=== PATIENT | female | born 1945 ===

== ENCOUNTER 2018-11-28 09:53 | Inpatient (IN) | payer MEDICARE, OTHER ==
[2018-11-28] MEDS ORDERED: CARDIZEM ONE (10:03)
[2018-11-28] MEDS ORDERED: NACL 0.9% 1000 ML 1,000 ML ONE (10:10)
[2018-11-28] MEDS ORDERED: CARDIZEM IV ONE ×2 (10:17→11:25)
[2018-11-28] MEDS ORDERED: NACL 0.9% 1000 ML 1,000 ML IV ONE (10:23)
[2018-11-28 10:46] LABS: Basophils # (Auto) 0.1 K/mm3 (0.0-0.1); Basophils % (Auto) 1.2 % (0.0-1.8); Eosinophils % (Auto) 0.8 % (0.0-4.3); Hematocrit 36.6 % (30.3-42.9); Hemoglobin 11.8 gm/dl (10.1-14.3); Lymphocytes # (Auto) 0.9 K/mm3 (1.2-5.4); Lymphocytes % (Auto) 20.5 % (13.4-35.0); Mean Corpuscular HGB Conc 32 % (30-34); Mean Corpuscular Volume 74 fl (79-97); Monocytes # (Auto) 0.2 K/mm3 (0.0-0.8); Monocytes % (Auto) 4.4 % (0.0-7.3); Platelet Count 286 K/mm3 (140-440); Red Blood Count 4.95 M/mm3 (3.65-5.03); Red Cell Distribution Width 14.6 % (13.2-15.2)
--- NOTE | 2018-11-28 10:48 | XRay Report ---
AP CHEST: HISTORY: chest pain AP view of the chest demonstrates a normal mediastinal and cardiac contour with clear lungs and normal bony and soft tissue structures. IMPRESSION: Unremarkable AP chest.
--- NOTE | 2018-11-28 10:59 | Emergency Department Report ---
HPI - General Chief Complaint: Arrhythmia/Palpitations Time Seen by Provider: 11/28/18 09:57 - HPI HPI: 73-year-old female presents to the emergency department via EMS from home with complaint of some chest pressure and palpitations that started about 4 hours prior to arrival. The patient has a history of asthma, anxiety and depression. She is a former smoker. She denies any illicit drug use. No recent travel or sick contacts at home. She did not receive anything for her symptoms or take anything prior to arrival. However, EMS did an EKG that showed a tachyarrhythmia that was irregular. ED Past Medical Hx - Past Medical History Previous Medical History?: Yes Hx Hypertension: Yes Hx Psychiatric Treatment: Yes (depression, anxiety,) Hx Asthma: Yes - Surgical History Past Surgical History?: No - Social History Smoking Status: Former Smoker Substance Use Type: None - Medications Home Medications: Home Medications Medication Instructions Recorded Confirmed Last Taken Type Amlodipine Bes/Olmesartan Med 1 each PO DAILY 11/28/18 11/28/18 Unknown History [Amlodipine-Olmesartan 5-40 mg] Budesonide/Formoterol Fumarate 10.2 gm IH PRN 11/28/18 11/28/18 Unknown History [Symbicort 80-4.5 Mcg Inhaler] Duloxetine HCl [Cymbalta] 120 mg PO QAM 11/28/18 11/28/18 Unknown History LORazepam [Ativan] 0.5 mg PO BID 11/28/18 11/28/18 Unknown History Zolpidem [Ambien] 5 mg PO QHS PRN 11/28/18 11/28/18 Unknown History ED Review of Systems ROS: Stated complaint: CHEST PAIN Other details as noted in HPI Comment: All other systems reviewed and negative Constitutional: denies: chills, fever Eyes: denies: eye pain, vision change ENT: denies: ear pain, throat pain Respiratory: shortness of breath. denies: cough Cardiovascular: chest pain, palpitations Gastrointestinal: denies: abdominal pain, vomiting Genitourinary: denies: dysuria, discharge Musculoskeletal: denies: back pain, arthralgia Skin: denies: rash, lesions Neurological: denies: headache, weakness Physical Exam - Physical Exam Vital Signs: Vital Signs 11/28/18 11/28/18 11/28/18 09:59 10:00 10:05 Temperature Pulse Rate 165 H 179 H 167 H Respiratory 27 H 36 H Rate Blood Pressure 97/52 Blood Pressure 95/75 [Left] O2 Sat by Pulse 100 100 Oximetry 11/28/18 11/28/18 11/28/18 10:08 10:16 10:21 Temperature 98.8 F Pulse Rate 140 H 121 H Respiratory 16 16 Rate Blood Pressure 84/57 Blood Pressure 97/52 [Left] O2 Sat by Pulse 100 99 Oximetry 11/28/18 10:30 Temperature Pulse Rate 127 H Respiratory 30 H Rate Blood Pressure 84/57 Blood Pressure [Left] O2 Sat by Pulse 98 Oximetry Physical Exam: GENERAL: The patient is well-developed well-nourished. HENT: Normocephalic. Atraumatic. Patient has moist mucous membranes. EYES: Extraocular motions are intact. Pupils equal reactive to light bilaterally. NECK: Supple. Trachea is midline. CHEST/LUNGS: Clear to auscultation. There is no respiratory distress noted. HEART/CARDIOVASCULAR: Irregular. Moderate to severe tachycardia. ABDOMEN: Abdomen is soft, nontender. Patient has normal bowel sounds. There is no abdominal distention. SKIN: Skin is warm and dry. NEURO: The patient is awake, alert, and oriented. The patient is cooperative. The patient has no focal neurologic deficits. The patient has normal speech. MUSCULOSKELETAL: There is no tenderness or deformity. There is no evidence of acute injury. ED Course Vital Signs 11/28/18 11/28/18 11/28/18 09:59 10:00 10:05 Temperature Pulse Rate 165 H 179 H 167 H Respiratory 27 H 36 H Rate Blood Pressure 97/52 Blood Pressure 95/75 [Left] O2 Sat by Pulse 100 100 Oximetry 11/28/18 11/28/18 11/28/18 10:08 10:16 10:21 Temperature 98.8 F Pulse Rate 140 H 121 H Respiratory 16 16 Rate Blood Pressure 84/57 Blood Pressure 97/52 [Left] O2 Sat by Pulse 100 99 Oximetry 11/28/18 10:30 Temperature Pulse Rate 127 H Respiratory 30 H Rate Blood Pressure 84/57 Blood Pressure [Left] O2 Sat by Pulse 98 Oximetry ED Medical Decision Making - Lab Data Result diagrams: 11/28/18 10:24 11/28/18 10:24 - EKG Data -: EKG Interpreted by Me Rate: tachycardia (165 bpm) - EKG Data Interpretation: other (atrial fibrillation with RVR, normal axis, normal intervals, very mild ST depression to the lateral leads, rate of 165 bpm) - Radiology Data Radiology results: report reviewed, image reviewed interpreted by me: Chest x-ray does not show any acute process. There are no pleural effusions, ob vious pneumonia and there is no pneumothorax. CTA CHEST: HISTORY: chest pain. COMPARISON: AP chest performed same day. TECHNIQUE: Helical CT in 1.25mm intervals following IV contrast. Pulmonary embolus protocol. Sagittal and coronal reformatted images. Rotational MIP images. FINDINGS: Contrast bolus is satisfactory. No pulmonary embolus is identified. Thyroid gland: Normal. Tracheobronchial tree: Normal. Esophagus: Normal. Heart: Normal. Pericardium: Normal. Mediastinum: Normal. Lung Grover: Normal. Pleural Spaces: Normal. Musculoskeletal: Osteopenia. Minimal thoracic spondylosis. Limited images of the upper abdomen demonstrates a few tiny gallstones in the gallbladder. No biliary dilatation. The right kidney is not identified in the upper abdomen suggesting right nephrectomy, ectopia or agenesis, correlate with the patient's history. IMPRESSION: No evidence for pulmonary embolus. Unremarkable CT chest with contrast. Cholelithiasis. Right nephrectomy? See above. Transcribed By: TTR Dictated By: ALFA DOOLEY JR, MD Electronically Authenticated By: ALFA DOOLEY JR, MD Signed Date/Time: 11/28/18 1431 - Medical Decision Making Patient presents to the emergency department with complaint of some chest discomfort, palpitations and shortness of breath. She was found to be in new onset atrial fibrillation with RVR. The patient had some response to the Cardizem given as a bolus so she was then started on a Cardizem drip. She did not had a conversion back to sinus rhythm but she has better rate control. Labs have been mostly unremarkable except for a slightly elevated and equivocal d- dimer. For this reason a CT angiography of the chest was done that does not show any signs of pulmonary embolism, aneurysm or dissection may show some cholelithiasis without cholecystitis. The patient will be admitted to the hospital for further evaluation of this new onset A. fib with RVR and was accepted for admission by the hospitalist, Dr. Ruiz. - Differential Diagnosis A-fib, ME, PE, Pneumonia Critical Care Time: Yes Critical care time in (mins) excluding proc time.: 35 Critical care attestation.: If time is entered above; I have spent that time in minutes in the direct care of this critically ill patient, excluding procedure time. Critical care time spent on this patient and during her initial evaluation, multiple re- evaluations, ordering and evaluation of labs and imaging, ordering and monitoring of Cardizem drip, multiple discussions with the patient. Critical Care Time: 35 minutes ED Disposition Clinical Impression: Atrial fibrillation with rapid ventricular response, New onset atrial fibrillation, Acute chest pain Disposition: 09 OP ADMIT IP TO THIS HOSP Is pt being admited?: Yes Condition: Serious Time of Disposition: 15:16
[2018-11-28 11:12] LABS: Alanine Aminotransferase 13 units/L (7-56); Albumin 3.7 g/dL (3.9-5); BUN/Creatinine Ratio 13; Blood Urea Nitrogen 10 mg/dL (7-17); Calcium 8.9 mg/dL (8.4-10.2); Hemolysis Index 6
[2018-11-28 11:36] LABS: INR 1.04 (0.87-1.13)
[2018-11-28 11:37] LABS: Partial Thromboplastin Time 34.3 Sec. (24.2-36.6)
--- NOTE | 2018-11-28 12:36 | History and Physical Report ---
History of Present Illness Chief complaint: My heart was pounding History of present illness: 73 YO Female with Asthma, Depression, Anxiety, HTN presents to ED for evaluation. Pt states that she was awakened from sleep this morning with chest pressure and chest palpitations. Pt states that she felt her heart pounding in her chest. EMS notified and upon arrival the patient was found to be in distress. Pt transported to [facility]. Pt seen and evaluated in ED and found to have Atrial Fib with RVR with heart rate in the 150's. Pt initiated on Cardizem drip for rate control and admitted to ICU. Pt denies fever, chills, shortness of breath, unilateral leg swelling, calf pain, prolonged travel/immobility, individual/family history of DVT/PE/Blood Clotting Disorders. Pt found to have CHADS 2 vasc score of 3. Pt initiated on therapeutic anticoagulation with Eliquis. Cardiology team consulted in ED. No prior admission for review. All listed medication reconciled at time of admission. Past History Past Medical History: hypertension, other (Asthma, Anxiety, Depression') Past Surgical History: No surgical history, Other (reviewed) Social history: single. denies: smoking, alcohol abuse, prescription drug abuse Family history: hypertension Medications and Allergies Allergies Allergy/AdvReac Type Severity Reaction Status Date / Time No Known Allergies Allergy Verified 11/28/18 11:11 Home Medications Medication Instructions Recorded Confirmed Last Taken Type Amlodipine Bes/Olmesartan Med 1 each PO DAILY 11/28/18 11/28/18 Unknown History [Amlodipine-Olmesartan 5-40 mg] Budesonide/Formoterol Fumarate 10.2 gm IH PRN 11/28/18 11/28/18 Unknown History [Symbicort 80-4.5 Mcg Inhaler] Duloxetine HCl [Cymbalta] 120 mg PO QAM 11/28/18 11/28/18 Unknown History LORazepam [Ativan] 0.5 mg PO BID 11/28/18 11/28/18 Unknown History Zolpidem [Ambien] 5 mg PO QHS PRN 11/28/18 11/28/18 Unknown History Active Meds: Active Medications Diltiazem HCl (Cardizem/D5w 100mg/100ml) 100 mg in 100 mls @ 5 mls/hr IV TITR SUYAPA; Protocol Review of Systems Constitutional: no weight loss, no weight gain, no fever, no chills Ears, nose, mouth and throat: no ear pain, no ear discharge, no tinnitis, no decreased hearing, no nose pain, no nasal congestion Breasts: no change in shape, no swelling, no mass Cardiovascular: palpitations, no chest pain, no orthopnea, no lightheadedness, no shortness of breath, no paroxysmal nocturnal dyspnea, no leg edema Respiratory: no cough, no cough with sputum, no excessive sputum, no hemoptysis Gastrointestinal: no nausea, no vomiting, no diarrhea, no constipation, no change in bowel habits Genitourinary Female: no pelvic pain, no flank pain, no menorrhagia, no dysuria, no urinary frequency, no urgency Rectal: no pain, no incontinence, no bleeding Musculoskeletal: no neck stiffness, no neck pain, no shooting arm pain, no arm numbness/tingling, no low back pain, no shooting leg pain Integumentary: no rash, no pruritis, no redness, no sores, no wounds Neurological: no transient paralysis, no paralysis, no weakness, no parathesias, no numbness, no tingling, no seizures Psychiatric: no anxiety, no memory loss, no change in sleep habits, no sleep disturbances, no insomnia, no hypersomnia, no change in appetite, no change in libido Endocrine: no cold intolerance, no heat intolerance, no polyphagia, no excessive thirst, no polydipsia, no polyuria, no nocturia Hematologic/Lymphatic: no easy bruising, no easy bleeding, no lymphadenopathy, no lymphedema Allergic/Immunologic: no urticaria, no allergic rhinitis, no persistent infections, no anaphylaxis Exam - Constitutional Vitals: Temp Pulse Resp BP Pulse Ox 98.8 F 126 H 29 H 110/86 99 11/28/18 10:21 11/28/18 11:46 11/28/18 11:46 11/28/18 11:46 11/28/18 11:46 General appearance: Present: mild distress - EENT Eyes: Present: PERRL ENT: hearing intact, clear oral mucosa - Neck Neck: Present: supple, normal ROM - Respiratory Respiratory effort: normal Respiratory: bilateral: CTA - Cardiovascular Rhythm: irregularly irregular Heart Sounds: Present: S1 & S2. Absent: rub, click - Extremities Extremities: pulses symmetrical, No edema Peripheral Pulses: within normal limits - Abdominal General gastrointestinal: Present: soft, non-tender, non-distended, normal bowel sounds Female genitourinary: Present: normal - Integumentary Integumentary: Present: clear, warm, dry - Musculoskeletal Musculoskeletal: gait normal, strength equal bilaterally - Psychiatric Psychiatric: appropriate mood/affect, intact judgment & insight - Neurologic Neurologic: CNII-XII intact, moves all extremities Results - Labs CBC & Chem 7: 11/28/18 10:24 11/28/18 10:24 Labs: Abnormal lab results 11/28/18 11/28/18 11/28/18 Range/Units 10:24 10:24 10:24 MCV 74 L (79-97) fl MCH 24 L (28-32) pg Lymph # 0.9 L (1.2-5.4) K/mm3 Seg Neutrophils % 73.1 H (40.0-70.0) % D-Dimer 294.87 H (0-234) ng/mlDDU Chloride 108.3 H (98-107) mmol/L Carbon Dioxide 20 L (22-30) mmol/L Glucose 119 H (65-100) mg/dL Albumin 3.7 L (3.9-5) g/dL Assessment and Plan - Patient Problems (1) Atrial fibrillation with rapid ventricular response Current Visit: Yes Status: Acute Plan to address problem: Admit to ICU: pt initiated on Cardizem drip, therapeutic anticoagulation, thyroid panel, magnesium level, (2) HTN (hypertension) Current Visit: Yes Status: Acute Qualifiers: Hypertension type: essential hypertension Qualified Code(s): I10 - Essential (primary) hypertension Plan to address problem: Monitor bp q shift, supportive care. (3) Anxiety Current Visit: Yes Status: Acute Plan to address problem: Ativan prn, supportive care. (4) Depression Current Visit: Yes Status: Acute Qualifiers: Depression Type: other depression Qualified Code(s): F32.89 - Other specified depressive episodes Plan to address problem: Continue cymbalta, Pt declines phych evaluation at this time. Pt denies current depression. (5) DVT prophylaxis Current Visit: Yes Status: Acute Plan to address problem: SCD to BLE while in bed, therapeutic anticoagulation.
[2018-11-28] MEDS ORDERED: CARDIZEM/D5W 100MG/100ML 100 MG/100 ML BAG IV SCH (13:00)
[2018-11-28] MEDS ORDERED: SODIUM CHLORIDE FLUSH SYRINGE 10 ML IV PRN (13:11)
[2018-11-28] MEDS ORDERED: AMBIEN PO PRN (13:12)
[2018-11-28] MEDS ORDERED: NON-FORMULARY (Budesonide/Formoterol Fumarate [Symbicort 80-4.5 Mcg Inhaler] 10.2 GM) IH SCH (13:15)
[2018-11-28] MEDS ORDERED: NACL 0.9% 1000 ML IV ONE (13:24)
--- NOTE | 2018-11-28 14:34 | Consultation ---
History of Present Illness Consult date: 11/28/18 Consult reason: atrial fibrillation History of present illness: This is a 73-year old woman who presents to the emergency department with palpitations, admitted with rapid atrial fibrillation. Cardiac consultation has been requested. Currently on intravenous Diltiazem. Initiated on eliquis for oral anticoagulation therapy. TSH is normal. Patient gives a history of hypertension, asthma, depression, anxiety and remote right nephrectomy. Patient denies a history of arrhythmias and has not followed with a load tester. Past History Past Medical History: hypertension, other (Asthma, Anxiety, Depression') Past Surgical History: Other (right nephrectomy) Social history: single. denies: smoking, alcohol abuse, prescription drug abuse Family history: hypertension Medications and Allergies Allergies Allergy/AdvReac Type Severity Reaction Status Date / Time No Known Allergies Allergy Verified 11/28/18 11:11 Home Medications Medication Instructions Recorded Confirmed Last Taken Type Amlodipine Bes/Olmesartan Med 1 each PO DAILY 11/28/18 11/28/18 Unknown History [Amlodipine-Olmesartan 5-40 mg] Budesonide/Formoterol Fumarate 10.2 gm IH PRN 11/28/18 11/28/18 Unknown History [Symbicort 80-4.5 Mcg Inhaler] Duloxetine HCl [Cymbalta] 120 mg PO QAM 11/28/18 11/28/18 Unknown History LORazepam [Ativan] 0.5 mg PO BID 11/28/18 11/28/18 Unknown History Zolpidem [Ambien] 5 mg PO QHS PRN 11/28/18 11/28/18 Unknown History Active Meds: Active Medications Amlodipine Besylate (Norvasc) 5 mg PO QDAY SUYAPA Apixaban (Eliquis) 5 mg PO Q12HR SUYAPA; Protocol Arformoterol Tartrate (Brovana Nebu) 15 mcg IH Q12HRT SUYAPA Budesonide (Pulmicort) 0.5 mg IH Q12HRT SUYAPA Duloxetine HCl (Cymbalta) 120 mg PO QDAY SUYAPA Diltiazem HCl (Cardizem/D5w 100mg/100ml) 100 mg in 100 mls @ 5 mls/hr IV TITR SUYAPA; Protocol Last Titration: 11/28/18 14:18 Dose: 10 mg/hr, 10 mls/hr Documented by: Lorazepam (Ativan) 0.5 mg PO BID SUYAPA Losartan Potassium (Cozaar) 100 mg PO QDAY SUYAPA Sodium Chloride (Sodium Chloride Flush Syringe 10 Ml) 10 ml IV BID SUYAPA Sodium Chloride (Sodium Chloride Flush Syringe 10 Ml) 10 ml IV PRN PRN PRN Reason: LINE FLUSH Zolpidem Tartrate (Ambien) 5 mg PO QHS PRN PRN Reason: Sleep Physical Examination Vital Signs Pulse Resp Pulse Ox 165 H 27 H 100 11/28/18 09:59 11/28/18 09:59 11/28/18 09:59 General appearance: no acute distress HEENT: Positive: PERRL Neck: Positive: trachea midline Cardiac: Positive: irregularly irregular Lungs: Positive: Decreased Breath Sounds Neuro: Positive: Grossly Intact Extremities: Absent: edema Results 11/28/18 10:24 11/28/18 10:24 Cardiac Enzymes 11/28/18 Range/Units 10:24 AST 18 (5-40) units/L Coagulation 11/28/18 Range/Units 10:24 PT 13.3 (12.2-14.9) Sec. INR 1.04 (0.87-1.13) APTT 34.3 (24.2-36.6) Sec. CBC 11/28/18 Range/Units 10:24 WBC 4.6 (4.5-11.0) K/mm3 RBC 4.95 (3.65-5.03) M/mm3 Hgb 11.8 (10.1-14.3) gm/dl Hct 36.6 (30.3-42.9) % Plt Count 286 (140-440) K/mm3 Lymph # 0.9 L (1.2-5.4) K/mm3 [place] # 0.2 (0.0-0.8) K/mm3 Eos # 0.0 (0.0-0.4) K/mm3 Baso # 0.1 (0.0-0.1) K/mm3 Comprehensive Metabolic Panel 11/28/18 Range/Units 10:24 Sodium 143 (137-145) mmol/L Potassium 4.0 (3.6-5.0) mmol/L Chloride 108.3 H (98-107) mmol/L Carbon Dioxide 20 L (22-30) mmol/L BUN 10 (7-17) mg/dL Creatinine 0.8 (0.7-1.2) mg/dL Glucose 119 H (65-100) mg/dL Calcium 8.9 (8.4-10.2) mg/dL AST 18 (5-40) units/L ALT 13 (7-56) units/L Alkaline Phosphatase 79 (35-129) units/L Total Protein 6.7 (6.3-8.2) g/dL Albumin 3.7 L (3.9-5) g/dL Assessment and Plan Atrial fibrillation, new onset on IV diltiazem initiated on eliquis for oral anticoagulation therapy normal TSH Hypertension Hx of right nephrectomy
--- NOTE | 2018-11-28 14:36 | Cat Scan Report ---
CTA CHEST: HISTORY: chest pain. COMPARISON: AP chest performed same day. TECHNIQUE: Helical CT in 1.25mm intervals following IV contrast. Pulmonary embolus protocol. Sagittal and coronal reformatted images. Rotational MIP images. FINDINGS: Contrast bolus is satisfactory. No pulmonary embolus is identified. Thyroid gland: Normal. Tracheobronchial tree: Normal. Esophagus: Normal. Heart: Normal. Pericardium: Normal. Mediastinum: Normal. Lung Grover: Normal. Pleural Spaces: Normal. Musculoskeletal: Osteopenia. Minimal thoracic spondylosis. Limited images of the upper abdomen demonstrates a few tiny gallstones in the gallbladder. No biliary dilatation. The right kidney is not identified in the upper abdomen suggesting right nephrectomy, ectopia or agenesis, correlate with the patient's history. IMPRESSION: No evidence for pulmonary embolus. Unremarkable CT chest with contrast. Cholelithiasis. Right nephrectomy? See above.
[2018-11-28] MEDS: ELIQUIS PO SCH ×2 (15:31→22:10)
[2018-11-28 15:43] LABS: Free T4 (Free Thyroxine) 0.87 ng/dL (0.76-1.46)
[2018-11-28 16:03] LABS: Chol/HDL Ratio 2.27 %
[2018-11-28] MEDS: PULMICORT IH SCH (21:57)
[2018-11-28] MEDS: BROVANA NEBU IH SCH (21:57)
[2018-11-28] MEDS: SODIUM CHLORIDE FLUSH SYRINGE 10 ML IV SCH (22:00)
[2018-11-28] MEDS ORDERED: ELIQUIS PO SCH (22:00)
[2018-11-28] MEDS: ATIVAN PO SCH (22:11)
[2018-11-29] MEDS: PULMICORT IH SCH ×2 (07:45→19:00)
[2018-11-29] MEDS: BROVANA NEBU IH SCH ×2 (07:45→19:00)
[2018-11-29] MEDS: COZAAR PO SCH (09:46)
[2018-11-29] MEDS: CYMBALTA PO SCH (09:47)
[2018-11-29] MEDS: ELIQUIS PO SCH ×2 (09:47→21:20)
[2018-11-29] MEDS: ATIVAN PO SCH ×2 (09:48→21:20)
[2018-11-29] MEDS: SODIUM CHLORIDE FLUSH SYRINGE 10 ML IV SCH ×2 (09:48→21:20)
[2018-11-29] MEDS ORDERED: NON-FORMULARY (Duloxetine Hcl [Cymbalta] 120 MG) PO SCH (10:00)
[2018-11-29] MEDS ORDERED: OLMESARTAN MED PO SCH (10:00)
[2018-11-29] MEDS ORDERED: NORVASC PO SCH (10:00)
[2018-11-29] MEDS ORDERED: AMLODIPINE BES PO SCH (10:00)
--- NOTE | 2018-11-29 10:50 | Consultation ---
History of Present Illness - Reason for Consult Consult date: 11/29/18 Afib with RVR Requesting physician: URIEL RUSSELL - History of Present Illness 73 y/o female who work up yesterday morning with chest pressure. Came to the ED with chest pain and found to be in afib with RVR. Started on Cardizem drip, converted and then became bradycardic. Drip stopped and then placed on PO meds for rate control. Started on oral anticoagulation. Past History Past Medical History: hypertension, other (Asthma, Anxiety, Depression') Past Surgical History: Other (right nephrectomy) Social history: single. denies: smoking, alcohol abuse, prescription drug abuse Family history: hypertension Medications and Allergies Allergies Allergy/AdvReac Type Severity Reaction Status Date / Time No Known Allergies Allergy Verified 11/28/18 11:11 Home Medications Medication Instructions Recorded Confirmed Last Taken Type Amlodipine Bes/Olmesartan Med 1 each PO DAILY 11/28/18 11/28/18 Unknown History [Amlodipine-Olmesartan 5-40 mg] Budesonide/Formoterol Fumarate 10.2 gm IH PRN 11/28/18 11/28/18 Unknown History [Symbicort 80-4.5 Mcg Inhaler] Duloxetine HCl [Cymbalta] 120 mg PO QAM 11/28/18 11/28/18 Unknown History LORazepam [Ativan] 0.5 mg PO BID 11/28/18 11/28/18 Unknown History Zolpidem [Ambien] 5 mg PO QHS PRN 11/28/18 11/28/18 Unknown History Active Meds: Active Medications Amlodipine Besylate (Norvasc) 5 mg PO QDAY COUNT INCLUDES THE [facility] Last Admin: 11/29/18 09:48 Dose: 5 mg Documented by: Apixaban (Eliquis) 5 mg PO Q12HR SUYAPA; Protocol Last Admin: 11/29/18 09:47 Dose: 5 mg Documented by: Arformoterol Tartrate (Brovana Nebu) 15 mcg IH Q12HRT COUNT INCLUDES THE [facility] Last Admin: 11/29/18 07:45 Dose: 15 mcg Documented by: Budesonide (Pulmicort) 0.5 mg IH Q12HRT COUNT INCLUDES THE [facility] Last Admin: 11/29/18 07:45 Dose: 0.5 mg Documented by: Diltiazem HCl (Cardizem) 30 mg PO Q6HR COUNT INCLUDES THE [facility] Duloxetine HCl (Cymbalta) 120 mg PO QDAY COUNT INCLUDES THE [facility] Last Admin: 11/29/18 09:47 Dose: Not Given Documented by: Diltiazem HCl (Cardizem/D5w 100mg/100ml) 100 mg in 100 mls @ 5 mls/hr IV TITR COUNT INCLUDES THE [facility]; Protocol Last Titration: 11/28/18 18:00 Dose: 0 mg/hr, 0 mls/hr Documented by: Lorazepam (Ativan) 0.5 mg PO BID COUNT INCLUDES THE [facility] Last Admin: 11/29/18 09:48 Dose: 0.5 mg Documented by: Losartan Potassium (Cozaar) 100 mg PO QDAY COUNT INCLUDES THE [facility] Last Admin: 11/29/18 09:46 Dose: 100 mg Documented by: Sodium Chloride (Sodium Chloride Flush Syringe 10 Ml) 10 ml IV BID COUNT INCLUDES THE [facility] Last Admin: 11/29/18 09:48 Dose: 10 ml Documented by: Sodium Chloride (Sodium Chloride Flush Syringe 10 Ml) 10 ml IV PRN PRN PRN Reason: LINE FLUSH Zolpidem Tartrate (Ambien) 5 mg PO QHS PRN PRN Reason: Sleep Review of Systems All systems: negative Exam - Constitutional Vitals: Temp Pulse Resp BP Pulse Ox 97.7 F 77 17 123/70 98 11/29/18 07:00 11/29/18 09:48 11/29/18 08:02 11/29/18 09:48 11/29/18 07:48 General appearance: Present: no acute distress, well-nourished - EENT Eyes: Present: PERRL, EOM intact ENT: hearing intact - Neck Neck: Present: supple, normal ROM - Respiratory Respiratory effort: normal Respiratory: bilateral: CTA - Cardiovascular Rhythm: regular - Extremities Extremities: no ischemia Results - Labs CBC & Chem 7: 11/28/18 10:24 11/28/18 10:24 Labs: Abnormal lab results 11/28/18 11/28/18 11/28/18 Range/Units 10:24 10:24 10:24 MCV 74 L (79-97) fl MCH 24 L (28-32) pg Lymph # 0.9 L (1.2-5.4) K/mm3 Seg Neutrophils % 73.1 H (40.0-70.0) % D-Dimer 294.87 H (0-234) ng/mlDDU Chloride 108.3 H (98-107) mmol/L Carbon Dioxide 20 L (22-30) mmol/L Glucose 119 H (65-100) mg/dL Troponin T (0.00-0.029) ng/mL Albumin 3.7 L (3.9-5) g/dL HDL Cholesterol (40-59) mg/dL 11/28/18 Range/Units 14:59 MCV (79-97) fl MCH (28-32) pg Lymph # (1.2-5.4) K/mm3 Seg Neutrophils % (40.0-70.0) % D-Dimer (0-234) ng/mlDDU Chloride (98-107) mmol/L Carbon Dioxide (22-30) mmol/L Glucose (65-100) mg/dL Troponin T 0.048 H D (0.00-0.029) ng/mL Albumin (3.9-5) g/dL HDL Cholesterol 77 H (40-59) mg/dL - Imaging and Cardiology Chest x-ray: image reviewed CT scan - chest: image reviewed Assessment and Plan 73 y/o female with new onset Afib with RVR, exact etiology unknown, currently on anticoagulation. 1. Will likely need echo but await cards recs 2. Rate is controlled and BP stable 3. Suggest transfer to the floor.
[2018-11-29] MEDS ORDERED: CARDIZEM PO SCH (12:00)
--- NOTE | 2018-11-29 13:26 | Progress Note ---
Assessment and Plan Atrial fibrillation, new onset reverted to sinus rhythm; on diltiazem for suppression initiated on eliquis for oral anticoagulation therapy normal TSH Hypertension Hx of right nephrectomy Recommendations: 12 lead ECG. Echocardiogram for LVEF assessment. Pre-discharged stress thallium test for further cardiac evaluation. Continue medical therapy for paroxysmal atrial fibrillation. Ok to transfer to telemetry. Subjective Date of service: 11/29/18 Interval history: Patient is resting in bed comfortably. Patient has reverted to a stable sinus rhythm. Objective Vital Signs Temp Pulse Pulse Pulse Pulse Pulse Resp 11/29/18 12:41 80 11/29/18 12:00 98.6 F 11/29/18 11:46 74 16 11/29/18 11:30 66 10 L 11/29/18 11:16 77 21 11/29/18 11:00 70 17 11/29/18 10:46 66 16 11/29/18 10:30 72 12 11/29/18 10:16 73 26 H 11/29/18 10:00 68 13 11/29/18 09:48 77 11/29/18 09:46 76 20 11/29/18 09:30 78 13 11/29/18 09:16 73 19 11/29/18 09:00 72 14 11/29/18 08:46 77 16 11/29/18 08:30 77 22 11/29/18 08:16 67 15 11/29/18 08:02 69 11/29/18 08:00 65 76 22 11/29/18 07:48 66 11/29/18 07:46 70 15 11/29/18 07:30 68 16 11/29/18 07:16 79 23 11/29/18 07:00 97.7 F 83 24 11/29/18 06:46 60 20 11/29/18 06:30 66 15 11/29/18 06:16 78 28 H 11/29/18 06:00 64 19 11/29/18 05:50 55 L 19 11/29/18 05:40 58 L 19 11/29/18 05:30 59 L 20 11/29/18 05:20 55 L 17 11/29/18 05:10 57 L 24 11/29/18 05:00 55 L 17 11/29/18 04:50 60 25 H 11/29/18 04:40 56 L 23 11/29/18 04:30 54 L 16 11/29/18 04:20 55 L 24 11/29/18 04:10 57 L 25 H 11/29/18 04:00 52 L 16 11/29/18 03:50 57 L 22 11/29/18 03:40 61 24 11/29/18 03:34 55 L 11/29/18 03:30 54 L 17 11/29/18 03:26 55 L 55 L 55 L 19 11/29/18 03:20 59 L 21 11/29/18 03:10 57 L 20 11/29/18 03:00 60 16 11/29/18 02:50 60 19 11/29/18 02:40 59 L 19 11/29/18 02:33 98.4 F 11/29/18 02:30 61 20 11/29/18 02:20 60 19 11/29/18 02:10 57 L 19 11/29/18 02:00 56 L 18 11/29/18 01:50 64 21 11/29/18 01:40 61 19 11/29/18 01:30 62 16 11/29/18 01:20 63 26 H 11/29/18 01:10 59 L 18 11/29/18 01:00 58 L 18 11/29/18 00:50 61 21 11/29/18 00:40 63 19 11/29/18 00:30 76 18 11/29/18 00:20 61 20 11/29/18 00:10 76 17 11/29/18 00:06 58 L 21 11/29/18 00:00 60 13 11/28/18 23:50 60 14 11/28/18 23:40 67 13 11/28/18 23:30 70 26 H 11/28/18 23:26 98.8 F 11/28/18 23:20 61 15 11/28/18 23:10 61 15 11/28/18 23:05 62 11/28/18 23:04 63 63 63 14 11/28/18 23:00 62 18 11/28/18 22:50 64 17 11/28/18 22:40 67 20 11/28/18 22:30 66 23 11/28/18 22:20 63 13 11/28/18 22:10 67 12 11/28/18 22:00 62 68 11 L 11/28/18 21:50 61 9 L 11/28/18 21:40 70 11 L 11/28/18 21:30 67 13 11/28/18 21:20 68 14 11/28/18 21:10 65 17 11/28/18 21:00 72 14 11/28/18 20:50 71 21 11/28/18 20:40 79 18 11/28/18 20:30 76 23 11/28/18 20:20 76 19 11/28/18 20:10 72 17 11/28/18 20:00 78 21 11/28/18 19:54 99.8 F H 11/28/18 19:50 64 13 11/28/18 19:40 65 16 11/28/18 19:34 70 70 70 14 11/28/18 19:32 70 11/28/18 19:30 68 21 11/28/18 19:20 68 13 11/28/18 19:10 68 26 H 11/28/18 19:00 66 14 11/28/18 18:50 68 15 11/28/18 18:40 69 12 11/28/18 18:30 77 28 H 11/28/18 18:29 90 11/28/18 18:20 78 18 11/28/18 18:10 69 14 11/28/18 18:00 71 16 11/28/18 17:50 71 15 11/28/18 17:40 70 16 11/28/18 17:30 97.8 F 69 20 11/28/18 17:20 70 22 11/28/18 17:10 49 L 12 11/28/18 17:03 114 H 15 11/28/18 16:51 72 14 11/28/18 16:00 124 H 12 11/28/18 15:45 119 H 18 11/28/18 15:30 130 H 19 11/28/18 15:16 129 H 19 11/28/18 15:00 15 11/28/18 14:45 134 H 14 11/28/18 14:30 148 H 18 11/28/18 14:15 142 H 30 H 11/28/18 14:08 132 H 30 H 11/28/18 13:30 144 H 17 Resp BP Pulse Ox 11/29/18 12:41 127/71 11/29/18 12:00 06/18/19 11:46 124/74 97 06/18/19 11:30 124/74 100 06/18/19 11:16 134/74 98 06/18/19 11:00 134/74 100 06/18/19 10:46 130/72 99 06/18/19 10:30 117/65 98 06/18/19 10:16 123/70 99 06/18/19 10:00 130/72 59 L 18/19 09:48 123/70 06/18/19 09:46 123/70 100 06/18/19 09:30 123/70 100 06/18/19 09:16 159/72 98 06/18/19 09:00 128/66 100 06/18/19 08:46 127/77 99 06/18/19 08:30 159/72 0618/19 08:16 127/77 98 06/18/19 08:02 17 /18/ 08:00 127/77 100 /18/19 07:48 13 98 /18/19 07:46 144/72 99 /18/19 07:30 144/72 100 /18/19 07:16 141/83 99 06/18/19 07:00 129/67 06/18/19 06:46 106/52 06/18/19 06:30 106/60 06/18/19 06:16 106/60 06/18/19 06:00 106/52 96 06/18/19 05:50 106/60 95 06/18/19 05:40 106/60 96 06/18/19 05:30 106/60 97 06/18/19 05:20 117/59 99 06/18/19 05:10 117/59 96 06/18/19 05:00 117/59 98 06/18/19 04:50 120/58 98 06/18/19 04:40 120/58 97 06/18/19 04:30 127/57 97 06/18/19 04:20 120/58 97 06/18/19 04:10 120/58 98 06/18/19 04:00 120/58 96 06/18/19 03:50 117/54 98 06/18/19 03:40 117/54 96 06/18/19 03:34 06/18/19 03:30 117/54 95 06/18/19 03:26 99 06/18/19 03:20 123/54 93 18 03:10 124/62 96 11/29/18 03:00 124/62 99 11/29/18 02:50 126/74 97 18 02:40 126/74 97 11/29/18 02:33 11/29/18 02:30 126/74 97 11/29/18 02:20 131/89 96 11/29/18 02:10 131/89 97 11/29/18 02:00 131/89 97 11/29/18 01:50 134/101 96 11/29/18 01:40 134/101 97 11/29/18 01:30 134/101 98 11/29/18 01:20 129/68 97 11/29/18 01:10 129/68 97 11/29/18 01:00 129/68 95 11/29/18 00:50 142/66 96 11/29/18 00:40 142/66 94 11/29/18 00:30 138/69 80 L 11/29/18 00:20 138/69 97 18 00:10 138/69 100 11/29/18 00:06 138/69 97 11/29/18 00:00 138/69 98 11/28/18 23:50 125/64 98 11/28/18 23:40 125/64 11/28/18 23:30 125/64 97 11/28/18 23:26 11/28/18 23:20 134/67 96 11/28/18 23:10 134/67 99 11/28/18 23:05 11/28/18 23:04 99 11/28/18 23:00 134/67 97 11/28/18 22:50 122/68 97 11/28/18 22:40 122/68 97 11/28/18 22:30 122/68 97 11/28/18 22:20 133/65 99 11/28/18 22:10 133/65 11/28/18 22:00 18 133/65 100 11/28/18 21:50 124/67 99 11/28/18 21:40 124/67 98 11/28/18 21:30 166/76 99 11/28/18 21:20 166/76 98 11/28/18 21:10 97 11/28/18 21:00 152/67 98 11/28/18 20:50 152/67 98 11/28/18 20:40 152/67 98 11/28/18 20:30 137/106 99 11/28/18 20:20 137/106 100 11/28/18 20:10 137/106 99 11/28/18 20:00 137/106 98 11/28/18 19:54 11/28/18 19:50 137/77 97 11/28/18 19:40 137/77 99 11/28/18 19:34 99 11/28/18 19:32 11/28/18 19:30 137/77 100 11/28/18 19:20 130/71 100 11/28/18 19:10 130/71 100 11/28/18 19:00 130/71 98 11/28/18 18:50 126/67 98 11/28/18 18:40 126/67 99 11/28/18 18:30 126/67 99 11/28/18 18:29 11/28/18 18:20 119/71 99 11/28/18 18:10 119/71 100 11/28/18 18:00 119/71 100 11/28/18 17:50 123/66 99 11/28/18 17:40 123/66 100 11/28/18 17:30 123/66 97 11/28/18 17:20 99 11/28/18 17:10 100 11/28/18 17:03 125/96 99 11/28/18 16:51 99 11/28/18 16:00 124/78 98 11/28/18 15:45 121/74 98 11/28/18 15:30 114/77 97 11/28/18 15:16 112/82 99 11/28/18 15:00 112/82 99 11/28/18 14:45 112/73 99 11/28/18 14:30 111/69 99 11/28/18 14:15 138/81 11/28/18 14:08 102/70 11/28/18 13:30 124/59 96 - Physical Examination General: No Apparent Distress HEENT: Positive: PERRL Neck: Positive: trachea midline Cardiac: Positive: Reg Rate and Rhythm Lungs: Positive: Decreased Breath Sounds Neuro: Positive: Grossly Intact Extremities: Absent: edema - Labs and Meds Lipids 11/28/18 Range/Units 14:59 Triglycerides 38 (2-149) mg/dL Cholesterol 175 (50-199) mg/dL HDL Cholesterol 77 H (40-59) mg/dL Cholesterol/HDL Ratio 2.27 %
--- NOTE | 2018-11-29 15:44 | Progress Note ---
Assessment and Plan Assessment and plan: A. fib with RVR, new onset - Patient was on Cardizem drip overnight and currently rate controlled, in sinus rhythm - We'll continue his by mouth Cardizem and eliquis - Cardiology consulted and recommend echo and ischemic workup for discharge Hypertension - Well-controlled - Continue current medication regimens DVT prophylaxis; continue eliquis Disposition; transferred to telemetry floor History Interval history: Patient was seen and evaluated this morning at bedside, patient denied chest pain or palpitation overnight. Hospitalist Physical - Physical exam Narrative exam: Not in cardiopulmonary distress. The patient appeared well nourished and normally developed. Vital signs as documented. Head exam is unremarkable. No scleral icterus . Neck is without jugular venous distension, thyromegaly, or carotid bruits. Lungs are clear to auscultation. Cardiac exam reveals regular rate and Rhythm. Abdominal exam reveals normal bowel sounds, no masses, no organomegaly and no aortic enlargement. Extremities are nonedematous and both femoral and pedal pulses are normal. 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 No focal weakness. - Constitutional Vitals: Temp Pulse Resp BP Pulse Ox 98.6 F 63 15 130/71 98 11/29/18 12:00 11/29/18 15:00 11/29/18 15:00 11/29/18 15:00 11/29/18 15:00 General appearance: Present: no acute distress, well-nourished Results - Labs CBC & Chem 7: 11/28/18 10:24 11/28/18 10:24 Labs: Laboratory Last Values WBC 4.6 K/mm3 (4.5-11.0) 11/28/18 10:24 RBC 4.95 M/mm3 (3.65-5.03) 11/28/18 10:24 Hgb 11.8 gm/dl (10.1-14.3) 11/28/18 10:24 Hct 36.6 % (30.3-42.9) 11/28/18 10:24 MCV 74 fl (79-97) L 11/28/18 10:24 MCH 24 pg (28-32) L 11/28/18 10:24 MCHC 32 % (30-34) 11/28/18 10:24 RDW 14.6 % (13.2-15.2) 11/28/18 10:24 Plt Count 286 K/mm3 (140-440) 11/28/18 10:24 Lymph % (Auto) 20.5 % (13.4-35.0) 11/28/18 10:24 [place] % (Auto) 4.4 % (0.0-7.3) 11/28/18 10:24 Eos % (Auto) 0.8 % (0.0-4.3) 11/28/18 10:24 Baso % (Auto) 1.2 % (0.0-1.8) 11/28/18 10:24 Lymph # 0.9 K/mm3 (1.2-5.4) L 11/28/18 10:24 [place] # 0.2 K/mm3 (0.0-0.8) 11/28/18 10:24 Eos # 0.0 K/mm3 (0.0-0.4) 11/28/18 10:24 Baso # 0.1 K/mm3 (0.0-0.1) 11/28/18 10:24 Seg Neutrophils % 73.1 % (40.0-70.0) H 11/28/18 10:24 Seg Neutrophils # 3.3 K/mm3 (1.8-7.7) 11/28/18 10:24 PT 13.3 Sec. (12.2-14.9) 11/28/18 10:24 INR 1.04 (0.87-1.13) 11/28/18 10:24 APTT 34.3 Sec. (24.2-36.6) 11/28/18 10:24 294.87 ng/mlDDU (0-234) H 11/28/18 10:24 Sodium 143 mmol/L (137-145) 11/28/18 10:24 Potassium 4.0 mmol/L (3.6-5.0) 11/28/18 10:24 Chloride 108.3 mmol/L (98-107) H 11/28/18 10:24 Carbon Dioxide 20 mmol/L (22-30) L 11/28/18 10:24 19 mmol/L 11/28/18 10:24 BUN 10 mg/dL (7-17) 11/28/18 10:24 0.8 mg/dL (0.7-1.2) 11/28/18 10:24 Estimated GFR > 60 ml/min 11/28/18 10:24 13 % 11/28/18 10:24 Glucose 119 mg/dL (65-100) H 11/28/18 10:24 Calcium 8.9 mg/dL (8.4-10.2) 11/28/18 10:24 Magnesium 1.90 mg/dL (1.7-2.3) 11/28/18 14:59 0.40 mg/dL (0.1-1.2) 11/28/18 10:24 AST 18 units/L (5-40) 11/28/18 10:24 ALT 13 units/L (7-56) 11/28/18 10:24 79 units/L (35-129) 11/28/18 10:24 0.048 ng/mL (0.00-0.029) H D 11/28/18 14:59 6.7 g/dL (6.3-8.2) 11/28/18 10:24 3.7 g/dL (3.9-5) L 11/28/18 10:24 1.2 % 11/28/18 10:24 Triglycerides 38 mg/dL (2-149) 11/28/18 14:59 Cholesterol 175 mg/dL (50-199) 11/28/18 14:59 95 mg/dL (50-130) 11/28/18 14:59 77 mg/dL (40-59) H 11/28/18 14:59 2.27 % 11/28/18 14:59 TSH 0.354 mlU/mL (0.270-4.200) 11/28/18 14:59 Free T4 0.87 ng/dL (0.76-1.46) 11/28/18 14:59 Active Medications - Current Medications Current Medications: Generic Name Dose Route Start Last Admin Trade Name Freq PRN Reason Stop Dose Admin Apixaban 5 mg 11/28/18 14:24 11/29/18 09:47 Eliquis PO 5 mg Q12HR SUYAPA Administration Protocol Arformoterol Tartrate 15 mcg 11/28/18 20:00 11/29/18 07:45 Brovana Nebu IH 15 mcg Q12HRT SUYAPA Administration Budesonide 0.5 mg 11/28/18 20:00 11/29/18 07:45 Pulmicort IH 0.5 mg Q12HRT SUYAPA Administration Diltiazem HCl 180 mg 11/29/18 14:00 Cardizem Cd PO QDAY SUYAPA Duloxetine HCl 120 mg 11/29/18 10:00 11/29/18 09:47 Cymbalta PO Not Given QDAY SUYAPA Lorazepam 0.5 mg 11/28/18 22:00 11/29/18 09:48 Ativan PO 0.5 mg BID SUYAPA Administration Losartan Potassium 100 mg 11/29/18 10:00 11/29/18 09:46 Cozaar PO 100 mg QDAY SUYAPA Administration Sodium Chloride 10 ml 11/28/18 22:00 11/29/18 09:48 Sodium Chloride Flush Syringe 10 Ml IV 10 ml BID SUYAPA Administration Sodium Chloride 10 ml 11/28/18 13:11 Sodium Chloride Flush Syringe 10 Ml IV PRN PRN LINE FLUSH Zolpidem Tartrate 5 mg 11/28/18 13:12 Ambien PO QHS PRN Sleep Nutrition/Malnutrition Assess - Dietary Evaluation Nutrition/Malnutrition Findings: Nutrition Notes Start: 11/29/18 1 4:52 Freq: Status: Active Protocol: Document 11/29/18 14:52 RM (Rec: 11/29/18 15:03 RM [id number]) Nutrition Notes Need for Assessment generated from: MD Order Initial or Follow up Assessment Current Diagnosis Hypertension Other Pertinent Diagnosis CP, Anxiety, Depression, Afib Current Diet Cardiac w/Ensure Enlive strawberry Labs/Tests Reviewed Pertinent Medications Reviewed Height 5 ft 6 in Weight 78.925 kg Usual Body Weight 86.36 kg [place] Body Weight (kg) 59.09 BMI 28.0 Weight change and time frame 8.6% wt loss Subjective/Other Information Consulted for poor oral intake ,wt loss, and decreased appetite. Screened for malnutrition. Only ONS diet in place earlier . Cardiac diet added later. 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 Stated she drank an Ensure this morning and enjoyed it. Stated that her UBW was 190 lbs but unsure of time frame. No temporal or orbital wasting . 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 No Is Patient Ambulatory and/or Out of Bed Yes REE-([facility]-ambulatory/OOB) [ 0664.300 [id number]] Calculation Used for Recommendations [facility] Additional Notes Protein Needs: 79-95g (1-1.2g/ kg) Fluid Needs: 1 ml/kcal Nutrition Intervention Change Diet Order: Continue current Add Supplement/Snack (indicate name/kcal Ensure Enlive [place] 1 /protein ) daily Provides kCal: 350 Provides Protein (gm) 10 Goal #1 Meet at least 80% of calorie and protein needs via PO and ONS intakes Anticipated Discharge Needs: Cardiac diet Follow-Up By: 12/02/18 Additional Comments Follow for PO and ONS intakes
[2018-11-29] MEDS: CARDIZEM CD PO SCH (16:18)
[2018-11-30 06:55] LABS: BUN/Creatinine Ratio 18; Blood Urea Nitrogen 14 mg/dL (7-17); Hemolysis Index 2
[2018-11-30] MEDS: PULMICORT IH SCH ×2 (08:49→11:20)
[2018-11-30] MEDS: BROVANA NEBU IH SCH ×2 (08:49→11:20)
[2018-11-30] MEDS ORDERED: LEXISCAN IV ONE ×2 (09:28→09:29)
[2018-11-30] MEDS: SODIUM CHLORIDE FLUSH SYRINGE 10 ML IV SCH (10:00)
--- NOTE | 2018-11-30 10:31 | Progress Note ---
Assessment and Plan Atrial fibrillation, new onset reverted to sinus rhythm; on diltiazem for suppression initiated on eliquis for oral anticoagulation therapy normal TSH Hypertension Hx of right nephrectomy Recommendations: 12 lead ECG. Echocardiogram for LVEF assessment pending stress thallium test for further cardiac evaluation today Continue medical therapy for paroxysmal atrial fibrillation.Eliquis for anticoagulation. Subjective Date of service: 11/30/18 Interval history: No acute events. Resting comfortably. No chest pain or SOB. Objective Vital Signs Temp Pulse Pulse Resp Resp BP Pulse Ox 11/30/18 07:48 98.5 F 77 16 133/78 97 11/30/18 03:54 98.6 F 66 18 126/76 95 11/29/18 23:55 89 11/29/18 23:11 98.4 F 68 17 121/79 99 11/29/18 19:30 99.4 F 69 16 146/79 98 11/29/18 19:16 62 18 11/29/18 19:04 98 11/29/18 19:01 60 18 11/29/18 18:17 99.0 F 67 16 119/75 97 11/29/18 16:31 77 24 152/89 97 11/29/18 16:18 77 159/99 11/29/18 16:00 98.4 F 78 17 159/99 99 11/29/18 15:30 76 13 152/89 100 11/29/18 15:00 63 15 130/71 98 11/29/18 14:30 72 18 123/76 98 11/29/18 14:00 64 11 L 133/69 99 11/29/18 13:30 80 15 133/90 99 11/29/18 13:00 95 H 39 H 113/81 97 11/29/18 12:41 80 127/71 11/29/18 12:30 72 12 127/71 98 11/29/18 12:00 98.6 F 76 12 131/75 99 11/29/18 11:46 74 16 124/74 97 11/29/18 11:30 66 10 L 124/74 100 11/29/18 11:16 77 21 134/74 98 11/29/18 11:00 70 17 134/74 100 11/29/18 10:46 66 16 130/72 99 - Physical Examination General: No Apparent Distress HEENT: Positive: PERRL Neck: Positive: trachea midline Neuro: Positive: Grossly Intact Extremities: Absent: edema - Labs and Meds Comprehensive Metabolic Panel 11/30/18 Range/Units 05:46 Sodium 143 (137-145) mmol/L Potassium 3.8 (3.6-5.0) mmol/L Chloride 106.3 (98-107) mmol/L Carbon Dioxide 22 (22-30) mmol/L BUN 14 (7-17) mg/dL Creatinine 0.8 (0.7-1.2) mg/dL Glucose 91 (65-100) mg/dL Calcium 9.0 (8.4-10.2) mg/dL
--- NOTE | 2018-11-30 11:13 | Discharge Summary ---
Providers - Providers Date of Admission: 11/28/18 13:11 Attending physician: URIEL RUSSELL MD 11/28/18 13:13 Consult to Physician [CONS] Routine Comment: Consulting Provider: JACKY SANDOVAL Physician Instructions: Reason For Exam: A Fib with RVR 11/28/18 14:58 Consult to Physician [CONS] Routine Comment: Consulting Provider: ANNA BENITEZ Physician Instructions: Reason For Exam: critical care management 11/28/18 17:26 Consult to Dietitian/Nutrition [CONS] Routine Physician Instructions: Reason For Exam: Decreased appetite, poor oral intake, weight loss Reason for Consult: Pt needs oral supplement [facility] Reason for admission: New onset A.fib with RVR Condition: Serious Pertinent studies: Stress test Echo Hospital course: 73 YO Female with Asthma, Depression, Anxiety, HTN presents to ED for sandy luation. Pt states that she was awakened from sleep this morning with chest pressure and chest palpitations. Pt states that she felt her heart pounding in her chest. EMS notified and upon arrival the patient was found to be in distress. Pt transported to [facility]. Pt seen and evaluated in ED and found to have Atrial Fib with RVR with heart rate in the 150's. Pt initiated on Cardizem drip for rate control and admitted to ICU. Pt denies fever, chills, shortness of breath, unilateral leg swelling, calf pain, prolonged travel/immobility, individual/family history of DVT/PE/Blood Clotting Disorders. Pt found to have CHADS 2 vasc score of 3. Pt initiated on therapeutic anticoagulation with Eliquis. Cardiology team consulted in ED. No prior admission for review. All listed medication reconciled at time of admission. Patient admitted to ICU for the management of afib with RVR and she was treated with cardizem and heparin drip. patient converted to sinus rhythm and transferred to the floor. Ischemic work up and Echo was unremarkable and discharged home with eliquis and diltiazem. Cardiology consult appreciated. Patient was hemodynamically stable at the time of DC. Disposition: DC-01 TO HOME OR SELFCARE Time spent for discharge: 32 minutes - Discharge Diagnoses (1) Acute chest pain Status: Acute (2) Anxiety Status: Acute (3) Atrial fibrillation with rapid ventricular response Status: Acute (4) HTN (hypertension) Status: Acute Qualifiers: Hypertension type: essential hypertension Qualified Code(s): I10 - Essential (primary) hypertension Core Measure Documentation - Palliative Care Palliative Care/ Comfort Measures: Not Applicable - Core Measures Any of the following diagnoses?: none Exam - Physical Exam Narrative exam: Not in cardiopulmonary distress. The patient appeared well nourished and normally developed. Vital signs as documented. Head exam is unremarkable. No scleral icterus . Neck is without jugular venous distension, thyromegaly, or carotid bruits. Lungs are clear to auscultation. Cardiac exam reveals regular rate and Rhythm. Abdominal exam reveals normal bowel sounds, no masses, no organomegaly and no aortic enlargement. Extremities are nonedematous and both femoral and pedal pulses are normal. 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 No focal weakness. - Constitutional Vitals: Temp Pulse Resp BP Pulse Ox 98.5 F 77 16 135/75 97 11/30/18 07:48 11/30/18 07:48 11/30/18 07:48 11/30/18 09:41 11/30/18 07:48 Plan Activity: no restrictions Weight Bearing Status: Full Weight Bearing Diet: low cholesterol, low salt Follow up with: AKHIL FELICIANO MD [Primary Care Provider] - 7 Days Prescriptions: dilTIAZem CD [Cardizem CD] 180 mg PO QDAY #30 capsule Apixaban [Eliquis] 5 mg PO Q12HR #60 tablet
[2018-11-30] MEDS: CYMBALTA PO SCH (11:14)
[2018-11-30] MEDS: COZAAR PO SCH (11:16)
[2018-11-30] MEDS: ELIQUIS PO SCH (11:17)
[2018-11-30] MEDS: CARDIZEM CD PO SCH (11:17)
[2018-11-30] MEDS: ATIVAN PO SCH (11:18)
--- NOTE | 2018-11-30 12:29 | Progress Note ---
Assessment and Plan 73 y/o female with new onset Afib with RVR, exact etiology unknown, currently on anticoagulation. 1. No pulmonary issues. 2. Will sign off at this time. Subjective Date of service: 11/30/18 Interval history: Successful transfer out of unit. Stable. No pulmonary issues. Objective - Constitutional Vitals: Vital Signs - 12hr 11/30/18 11/30/18 11/30/18 03:54 07:48 09:15 Temperature 98.6 F 98.5 F Pulse Rate 66 77 Pulse Rate [ Bilateral Throughout] Respiratory 18 16 Rate Respiratory Rate [Bilateral Throughout] Blood Pressure 126/76 133/78 134/87 O2 Sat by Pulse 95 97 Oximetry 11/30/18 11/30/18 11/30/18 09:17 09:26 09:27 Temperature Pulse Rate Pulse Rate [ Bilateral Throughout] Respiratory Rate Respiratory Rate [Bilateral Throughout] Blood Pressure 132/85 127/85 121/81 O2 Sat by Pulse Oximetry 11/30/18 11/30/18 11/30/18 09:35 09:36 09:38 Temperature Pulse Rate Pulse Rate [ Bilateral Throughout] Respiratory Rate Respiratory Rate [Bilateral Throughout] Blood Pressure 137/85 144/82 130/72 O2 Sat by Pulse Oximetry 11/30/18 11/30/18 11/30/18 09:41 11:16 11:17 Temperature Pulse Rate 56 L 56 L Pulse Rate [ Bilateral Throughout] Respiratory Rate Respiratory Rate [Bilateral Throughout] Blood Pressure 135/75 134/76 134/76 O2 Sat by Pulse Oximetry 11/30/18 11/30/18 11/30/18 11:20 11:24 11:39 Temperature Pulse Rate Pulse Rate [ 75 85 Bilateral Throughout] Respiratory Rate Respiratory 18 18 Rate [Bilateral Throughout] Blood Pressure O2 Sat by Pulse 100 Oximetry 11/30/18 12:01 Temperature Pulse Rate 80 Pulse Rate [ Bilateral Throughout] Respiratory Rate Respiratory Rate [Bilateral Throughout] Blood Pressure O2 Sat by Pulse Oximetry - Labs CBC & Chem 7: 11/28/18 10:24 11/30/18 05:46 Medications & Allergies - Medications Allergies/Adverse Reactions: Allergies No Known Allergies Allergy (Verified 11/28/18 11:11) Home Medications: Home Medications Medication Instructions Recorded Confirmed Last Taken Type Amlodipine Bes/Olmesartan Med 1 each PO DAILY 11/28/18 11/28/18 Unknown History [Amlodipine-Olmesartan 5-40 mg] Budesonide/Formoterol Fumarate 10.2 gm IH PRN 11/28/18 11/28/18 Unknown History [Symbicort 80-4.5 Mcg Inhaler] Duloxetine HCl [Cymbalta] 120 mg PO QAM 11/28/18 11/28/18 Unknown History LORazepam [Ativan] 0.5 mg PO BID 11/28/18 11/28/18 Unknown History Zolpidem [Ambien] 5 mg PO QHS PRN 11/28/18 11/28/18 Unknown History Apixaban [Eliquis] 5 mg PO Q12HR #60 tablet 11/30/18 Unknown Rx dilTIAZem CD [Cardizem CD] 180 mg PO QDAY #30 capsule 11/30/18 Unknown Rx Active Medications: Generic Name Dose Route Start Last Admin Trade Name Freq PRN Reason Stop Dose Admin Apixaban 5 mg 11/28/18 14:24 11/30/18 11:17 Eliquis PO 5 mg Q12HR SUYAPA Administration Protocol Arformoterol Tartrate 15 mcg 11/28/18 20:00 11/30/18 11:20 Brovana Nebu IH 15 mcg Q12HRT SUYAPA Administration Budesonide 0.5 mg 11/28/18 20:00 11/30/18 11:20 Pulmicort IH 0.5 mg Q12HRT SUYAPA Administration Diltiazem HCl 180 mg 11/29/18 14:00 11/30/18 11:17 Cardizem Cd PO 180 mg QDAY SUYAPA Administration Duloxetine HCl 120 mg 11/29/18 10:00 11/30/18 11:14 Cymbalta PO 120 mg QDAY SUYAPA Administration Lorazepam 0.5 mg 11/28/18 22:00 11/30/18 11:18 Ativan PO 0.5 mg BID SUYAPA Administration Losartan Potassium 100 mg 11/29/18 10:00 11/30/18 11:16 Cozaar PO 100 mg QDAY SUYAPA Administration Sodium Chloride 10 ml 11/28/18 22:00 11/30/18 10:00 Sodium Chloride Flush Syringe 10 Ml IV Not Given BID SUYAPA Sodium Chloride 10 ml 11/28/18 13:11 Sodium Chloride Flush Syringe 10 Ml IV PRN PRN LINE FLUSH Zolpidem Tartrate 5 mg 11/28/18 13:12 Ambien PO QHS PRN Sleep
[2018-11-30 15:46] VITALS: BP 130/82
--- NOTE | 2018-12-02 05:16 | Treadmill Report ---
THALLIUM STRESS TEST LEFT VENTRICLE: Left ventricular chamber size is within normal spread. Perfusion study demonstrates homogeneous uptake of the tracer in all segments, no significant perfusion defects identified. Gated analysis demonstrates normal left ventricular systolic function, ejection fraction is greater than 70%. CONCLUSION: Normal myocardial perfusion study. JOB# [id number] CA/NTS
== END 2018-11-30 17:56 | disposition home or self-care (01) | DRG 310 ==
LOC: ED 09:53 → CC1 13:11 → 4A 11-29 16:48
PROVIDERS: ADMIT Internal Medicine; ATTEND Internal Medicine
DX: I48.91 Unspecified atrial fibrillation (principal); I10 Essential (primary) hypertension; J45.909 Unspecified asthma, uncomplicated; R07.89 Other chest pain; F41.9 Anxiety disorder, unspecified; F32.9 Major depressive disorder, single episode, unspecified; Z79.01 Long term (current) use of anticoagulants; Z90.5 Acquired absence of kidney; Z87.891 Personal history of nicotine dependence
CPT/HCPCS: 36415; 71045; 71275; 78452; 80048; 80053; 80061; 83735; 84439; 84443; 84484; 85025; 85379; 85610; 85730; 93005; 93010; 93017; 93306; 94640; G0378; A9502; J2785; J7030; Q9967